=== PATIENT | female | born 1945 | race Caucasian/White ===

== ENCOUNTER 2017-03-15 22:40 | Emergency (ER) | payer OTHER ==
[2017-03-15 23:00] VITALS: BP 147/79
--- NOTE | 2017-03-16 00:03 | EDM.PDOC ---
ED HPI GENERAL MEDICAL PROBLEM - General Chief Complaint: Upper Extremity Injury/Pain Stated Complaint: ARM HURTS Time Seen by Provider: 03/15/17 23:15 Source of Information: Reports: Patient History Limitations: Reports: No Limitations - History of Present Illness INITIAL COMMENTS - FREE TEXT/NARRATIVE: 71-year-old female with fairly intense localized pain over the lateral left elbow which is worsening over the past 24-48 hours. No specific trauma but she is bumping into things "all the time at work". There is some slight erythema over the lateral epicondyle with focal tenderness, very painful to flex the elbow into a 90 position. No warmth or fever. No olecranon bursa inflammation or fluctuance. Onset: Gradual (over the past 48 hours) Location: Reports: Upper Extremity, Left Quality: Reports: Sharp, Stabbing Severity: Moderate Improves with: Reports: Other (Holding the arm extended and still) Worsens with: Reports: Other (Flexion of the arm and touching or palpating the sore area) Associated Symptoms: Reports: No Other Symptoms Left Elbow Pain Score (Numeric/FACES): 8 - Related Data Allergies Allergy/AdvReac Type Severity Reaction Status Date / Time methylprednisolone Allergy Unknown Cannot Verified 12/22/16 08:30 Remember Penicillins Allergy Unknown Cannot Verified 12/22/16 08:30 Remember Skmmckg-Ogi-Djq Reductase Allergy Unknown Cannot Verified 12/22/16 08:30 Inhibitor Remember Sulfa (Sulfonamide Allergy Unknown Cannot Verified 12/22/16 08:30 Antibiotics) Remember bacitracin Allergy Itching Verified 12/22/16 08:30 Iodinated Contrast- Oral and Allergy Hives Verified 12/22/16 08:30 IV Dye NSAIDS (Non-Steroidal Allergy Nausea Verified 12/22/16 08:31 Anti-Inflamma Home Meds: Home Meds Aspirin [Aspirin EC] 325 mg PO DAILY 04/07/13 [History] Furosemide [Lasix] 40 mg PO DAILY 04/07/13 [History] Potassium Chloride [Klor-Con 10] 20 meq PO DAILY 04/07/13 [History] atorvaSTATin [Lipitor] 10 mg PO BEDTIME 04/07/13 [History] Nitroglycerin 0.4 mg SL Q5M PRN #25 tab.subl 04/21/13 [Rx] Loratadine [Claritin RediTabs] 10 mg PO DAILY 04/25/13 [History] Hydrocodone/Acetaminophen [Gorham 10-325 Tablet] 1 each PO Q8H PRN 03/09/15 [ History] Isosorbide Mononitrate [Imdur] 30 mg PO DAILY 03/09/15 [History] Ranitidine [Zantac] 150 mg PO DAILY PRN 03/09/15 [History] Triamcinolone Acetonide [Kenalog 0.1% Crm] 1 applic TOP TID 03/09/15 [History] Past Medical History HEENT History: Reports: Sinusitis Cardiovascular History: Reports: High Cholesterol, Hypertension Respiratory History: Reports: Asthma, Bronchitis, Recurrent Gastrointestinal History: Reports: Gastritis, GERD Genitourinary History: Reports: Urinary Incontinence 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 Social & Family History - Tobacco Use Smoking Status *Q: Former Smoker Years of Tobacco use: 50 Used Tobacco, but Quit: Yes Month Tobacco Last Used: years ago Second Hand Smoke Exposure: No - Caffeine Use Caffeine Use: Reports: Coffee, Soda, Tea - Alcohol Use Days Per Week of Alcohol Use: 0 - Recreational Drug Use Recreational Drug Use: No Review of Systems - Review of Systems Review Of Systems: See Below Constitutional: Denies: Fever, Weakness Respiratory: Denies: Shortness of Breath Cardiovascular: Denies: Chest Pain Skin: Reports: Erythema (A small amount of erythema over the lateral left elbow , no bruising) Neurological: Reports: Paresthesia (No distal paresthesias or numbness) ED EXAM, GENERAL - Physical Exam Exam: See Below Exam Limited By: No Limitations General Appearance: Alert, No Apparent Distress Respiratory/Chest: No Respiratory Distress Extremities: Other (Exam is otherwise limited to the left arm. She has some slight erythema over the lateral epicondyle of the left elbow, and and it is very tender to palpation with marked increase in pain with flexion of the elbow. There is no appreciable effusion, the olecranon bursa is nontender without fluctuance or swelling. She has marked increased pain with extension of the wrist against resistance) Course - Vital Signs Last Recorded V/S: Last Vital Signs Temp 96.3 F 03/15/17 22:58 Pulse 80 03/15/17 22:58 Resp 20 03/15/17 22:58 BP 147/79 H 03/15/17 22:58 Pulse Ox 97 03/15/17 22:58 - Orders/Labs/Meds Orders: Active Orders 24 hr Category Date Time Status Elbow Min 3V Lt [CR] Stat Exams 03/15/17 23:31 Taken - Re-Assessments/Exams Free Text/Narrative Re-Assessment/Exam: 03/16/17 00:00 A 3 view x-ray of the elbow was obtained which looks normal. There is no evidence of calcific tendinitis, elbow effusion or arthritis. I think for some reason this patient has developed a fairly acute and very symptomatic lateral epicondylitis. I put a four-inch Balbir wrap around her arm, gave her 6 hydrocodone to use sparingly and would like her to recheck with orthopedics tomorrow. Departure - Departure Time of Disposition: 00:21 Disposition: Home, Self-Care 01 Condition: Good Clinical Impression: Epicondylitis, lateral Qualifiers: Laterality: left Qualified Code(s): M77.12 - Lateral epicondylitis, left elbow - Discharge Information Instructions: Tennis Elbow, [id number] Referrals: Anthony Figueroa MD [Primary Care Provider] - Forms: ED Department Discharge Care Plan Goals: Wear Balbir wrap for support, ice may help and use pain medications as directed. Get a second opinion from Dr. Walker Ramirez or Jumana Balderas tomorrow at the orthopedic clinic. - My Orders Last 24 Hours: My Active Orders 03/15/17 23:31 Elbow Min 3V Lt [CR] Stat - Assessment/Plan Last 24 Hours: My Active Orders 03/15/17 23:31 Elbow Min 3V Lt [CR] Stat
--- NOTE | 2017-03-16 08:41 | CR ---
Elbow Min 3V Lt INDICATION: non traumatic pain FINDINGS: Well-corticated calcific densities in the anterior joint appear chronic. Small enthesophyte involving the olecranon. No evidence for acute fracture.
== END 2017-03-16 00:10 | disposition home or self-care (01) ==
LOC: JP.ED 22:40
DX: M77.12 Lateral epicondylitis, left elbow (principal); I10 Essential (primary) hypertension; E78.00 Pure hypercholesterolemia, unspecified; Z79.01 Long term (current) use of anticoagulants; Z79.82 Long term (current) use of aspirin; Z79.899 Other long term (current) drug therapy; Z87.891 Personal history of nicotine dependence; Z88.0 Allergy status to penicillin; Z88.2 Allergy status to sulfonamides; Z88.8 Allergy status to other drugs, medicaments and biological substances
CPT/HCPCS: 73080-26-LT; 73080-LT; 99284

== ENCOUNTER 2017-09-30 22:32 | Emergency (ER) | payer OTHER ==
[2017-09-30] MEDS ORDERED: Sodium Chloride 0.9% 10 ML Syringe FLUSH PRN (23:28)
--- NOTE | 2017-09-30 23:32 | EDM.PDOC ---
ED HPI GENERAL MEDICAL PROBLEM - General Chief Complaint: Chest Pain Stated Complaint: CHEST PAIN Time Seen by Provider: 09/30/17 23:04 Source of Information: Reports: Patient, Old Records, RN Notes Reviewed History Limitations: Reports: Other (History is complicated and there is some vagueness from the patient) - History of Present Illness INITIAL COMMENTS - FREE TEXT/NARRATIVE: Here with her son and her sister Chief complaint Chest discomfort History of present illness 71-year-old female who lives on her own, with history of prior cardiac interventions, was well this morning but sometime around 6 PM this evening she started feeling tired nauseated and generally unwell. She felt some chest discomfort under the left breast but no sharp pains. She did feel some fluttering in her chest, but no diaphoresis. She did feel sensitive to touch her chest on the left side. She also felt it was hard to breathe. Similar chest discomfort in the past, she took a nitroglycerin, no change in her chest discomfort but she felt worse as she developed a headache. The chest discomfort has reduced a little but is still present. Previously she was told that she had a heart attack. She reports that she's never had significant chest pain and was unaware of the heart attack until it was showing up on EKG. She was referred for further evaluation found to have blocked arteries on an angiogram, underwent stent procedures and then later coronary artery bypass graft. However she states that with any year there was a blockage discovered. About a month ago she had some significant dizziness and lightheadedness, was taken by ambulance from [facility]. She was found to be bradycardic during her investigations underwent pacemaker placement. Apparently stent was placed or attempted, she was told that she has a blockage that she needs to be referred to to especially centrally because it was too complicated to treat locally. She is waiting to get a call back from [facility] in [place]. Her pacemaker was inserted August 20, she felt a little better after the pacemaker was inserted. At that time she also had valve replacement with a bovine tissue valve. She never has had shortness of breath or chest pain with exertion, as far she can recall she hasn't really improved since her bypass was done. Her sister reports that the patient just does not seem to have any energy. chest Pain Score (Numeric/FACES): 4 - Related Data Allergies Allergy/AdvReac Type Severity Reaction Status Date / Time methylprednisolone Allergy Unknown Cannot Verified 09/30/17 22:43 Remember Penicillins Allergy Unknown Cannot Verified 09/30/17 22:43 Remember Ikzlpso-Jio-Pxs Reductase Allergy Unknown Cannot Verified 09/30/17 22:43 Inhibitor Remember Sulfa (Sulfonamide Allergy Unknown Cannot Verified 09/30/17 22:43 Antibiotics) Remember bacitracin Allergy Itching Verified 09/30/17 22:43 Iodinated Contrast- Oral and Allergy Hives Verified 09/30/17 22:43 IV Dye metoprolol Allergy Hypotension Verified 09/30/17 22:44 NSAIDS (Non-Steroidal Allergy Nausea Verified 09/30/17 22:43 Anti-Inflamma Home Meds: Home Meds Aspirin [Aspirin EC] 325 mg PO DAILY 04/07/13 [History] Furosemide [Lasix] 40 mg PO DAILY 04/07/13 [History] atorvaSTATin [Lipitor] 10 mg PO BEDTIME 04/07/13 [History] Nitroglycerin 0.4 mg SL Q5M PRN #25 tab.subl 04/21/13 [Rx] Isosorbide Mononitrate [Imdur] 30 mg PO DAILY 03/09/15 [History] Triamcinolone Acetonide [Kenalog 0.1% Crm] 1 applic TOP TID 03/09/15 [History] Sulfamethoxazole/Trimethoprim [Bactrim 400-80 MG] 1 each PO BID 7 Days #14 tablet 03/16/17 [Rx] Clopidogrel [Plavix] 75 mg PO DAILY 09/30/17 [History] Lisinopril [Prinivil] 5 mg PO DAILY 09/30/17 [History] Past Medical History HEENT History: Reports: Sinusitis Cardiovascular History: Reports: Angina, Bypass, CAD, Heart Failure, Heart Murmur, High Cholesterol, Hypertension, SC, Pacemaker, Stents Respiratory History: Reports: Asthma, Bronchitis, Recurrent, Intubation, Previous, Sleep Apnea, SOB Gastrointestinal History: Reports: Gastritis, GERD Genitourinary History: Reports: Urinary Incontinence 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 left elbow pain Neurological History: Reports: CVA Hematologic History: Reports: Anticoagulation Therapy - Infectious Disease History Infectious Disease History: Reports: Chicken Pox, Measles, Mumps - Past Surgical History Cardiovascular Surgical History: Reports: Coronary Artery Bypass, Coronary Artery Stent, Valve Replacement GI Surgical History: Reports: Cholecystectomy, Colonoscopy, EGD Other Endocrine Surgeries/Procedures: Thyroid nodules. Social & Family History - Tobacco Use Smoking Status *Q: Former Smoker Used Tobacco, but Quit: No - Caffeine Use Caffeine Use: Reports: Coffee - Recreational Drug Use Recreational Drug Use: No ED ROS GENERAL - Review of Systems Review Of Systems: See Below Constitutional: Reports: Fever, Malaise. Denies: Chills, Diaphoresis, Decreased Appetite HEENT: Reports: No Symptoms Respiratory: Reports: Shortness of Breath. Denies: Wheezing, Pleuritic Chest Pain, Cough Cardiovascular: Reports: Chest Pain (Chest discomfort not a pain), Edema ( Occasional, mild currently), Lightheadedness, Palpitations. Denies: Dyspnea on Exertion, Syncope Endocrine: Reports: Fatigue. Denies: High Glucose GI/Abdominal: Reports: Nausea. Denies: Abdominal Pain, Decreased Appetite, Distension, Vomiting : Reports: No Symptoms Musculoskeletal: Reports: No Symptoms Skin: Reports: No Symptoms Neurological: Reports: Headache. Denies: Confusion, Paresthesia, Trouble Speaking, Difficulty Walking Hematologic/Lymphatic: Reports: No Symptoms Immunologic: Reports: No Symptoms ED EXAM, GENERAL - Physical Exam Exam: See Below Exam Limited By: No Limitations General Appearance: Alert, Mild Distress, Other (Appears very tired, it seems to take her much effort to answer questions) Eye Exam: Bilateral Eye: EOMI, Normal Inspection Ears: Normal External Exam, Hearing Grossly Normal Nose: Normal Inspection Throat/Mouth: Normal Inspection, Normal Oropharynx, Normal Voice Head: Atraumatic, Normocephalic Neck: Normal Inspection, Non-Tender. No: Lymphadenopathy (R), Lymphadenopathy ( L) Respiratory/Chest: No Respiratory Distress, Lungs Clear, Normal Breath Sounds, No Accessory Muscle Use, Other (Mild chest discomfort left side to palpation) Cardiovascular: Normal Peripheral Pulses, Regular Rate, Rhythm, Other (Very mild edema of the ankles) GI/Abdominal: Normal Bowel Sounds, Soft, Non-Tender Back Exam: Normal Inspection. No: CVA Tenderness (R), CVA Tenderness (L), Vertebral Tenderness Extremities: Non-Tender, Pedal Edema Neurological: Alert, Normal Gait, No Motor/Sensory Deficits, Slow to Respond Psychiatric: Flat Affect Skin Exam: Warm, Dry, Intact, Normal Color, No Rash Lymphatic: No Adenopathy Course - Vital Signs Last Recorded V/S: Last Vital Signs Temp 35.9 C 09/30/17 22:41 Pulse 83 10/01/17 00:22 Resp 16 10/01/17 00:22 BP 151/84 H 10/01/17 00:22 Pulse Ox 95 10/01/17 00:22 - Orders/Labs/Meds Orders: Active Orders 24 hr Category Date Time Status EKG Documentation Completion [RC] ASDIRECTED Care 09/30/17 23:30 Active Peripheral IV Care [RC] . DIRECTED Care 09/30/17 23:30 Active Chest 1V Frontal [CR] Stat Exams 09/30/17 23:28 Taken Peripheral IV Insertion Adult [OM.PC] Routine Oth 09/30/17 23:28 Ordered EKG 12 Lead [EK] Routine Ther 09/30/17 23:28 Ordered Labs: Laboratory Tests 09/30/17 09/30/17 09/30/17 Range/Units 22:35 22:35 22:35 WBC 6.5 (4.5-11.0) K/uL RBC 4.29 (3.30-5.50) M/uL Hgb 13.0 (12.0-15.0) g/dL Hct 37.8 (36.0-48.0) % MCV 88 (80-98) fL MCH 30 (27-31) pg MCHC 34 (32-36) % Plt Count 138 L (150-400) K/uL D-Dimer, Quantitative 708 H (0.0-400.0) ng/mL Sodium 140 (140-148) mmol/L Potassium 3.9 (3.6-5.2) mmol/L Chloride 104 (100-108) mmol/L Carbon Dioxide 27 (21-32) mmol/L Anion Gap 8.7 (5.0-14.0) mmol/L BUN 15 (7-18) mg/dL Creatinine 1.0 (0.6-1.0) mg/dL Est Cr Clr Drug Dosing 53.56 mL/min Estimated GFR (MDRD) 55 L (>60) Glucose 103 (74-106) mg/dL Calcium 8.9 (8.5-10.1) mg/dL Magnesium 1.9 (1.8-2.4) mg/dL Total Bilirubin 0.4 (0.2-1.0) mg/dL AST 22 (15-37) U/L ALT 40 (12-78) U/L Alkaline Phosphatase 81 (46-116) U/L Troponin I 0.020 (0.000-0.056) ng/mL NT-Pro-B Natriuret Pep 765 H (5-125) pg/mL Total Protein 6.6 (6.4-8.2) g/dL Albumin 3.6 (3.4-5.0) g/dL Globulin 3.0 (2.3-3.5) g/dL Albumin/Globulin Ratio 1.2 (1.2-2.2) Meds: Medications Discontinued Medications Generic Name Dose Route Start Last Admin Trade Name Freq PRN Reason Stop Dose Admin Sodium Chloride 10 ml 09/30/17 23:28 09/30/17 23:32 Saline Flush FLUSH 10 ml ASDIRECTED PRN Administration Keep Vein Open - Re-Assessments/Exams Free Text/Narrative Re-Assessment/Exam: 09/30/17 23:30 71-year-old female who presents with left-sided chest discomfort that feels like a muscle to her, similar to previous episodes. Also fatigue naus and "doesn't feel well" Has not had conventi symptoms, does not get pressure or difficulty breathing or short of breath, but has been diagnosed with coronary artery disease, was told she had a heart attack has had coronary artery bypass graft and stenting. Appears tired, differential diagnosis includes nonspecific fatigue, coronary disease, other systemic illness. Saline lockEKG shows paced rhythm with some fusion complexes or PVCs, no acute ischemic changes but difficult to interpret 10/01/17 00:47 After 4-1/2 hours, troponin is normal BMP mildly elevated as is d-dimer but patient declined CT pulmonary angiogram is she needs preparation for dye allergy and she's not interested in doing that. Chest x-ray is normal There is no evidence of hypoxia She is drifting off to sleep. Likely her fatigue is multifactorial No evidence of acute heart or lung disease tonight Return to emergency if gasping for breath, fever, bad chest pain Otherwise follow-up with primary care and with David Cohen as arranged Departure - Departure Time of Disposition: 00:48 Disposition: Home, Self-Care 01 Condition: Undetermined Clinical Impression: Chest discomfort Fatigue Qualifiers: Fatigue type: unspecified Qualified Code(s): R53.83 - Other fatigue - Discharge Information Instructions: Nonspecific Chest Pain Referrals: Anthony Figueroa MD [Primary Care Provider] - Forms: ED Department Discharge Additional Instructions: Although you do have narrowed or blocked coronary arteries and have had stents and bypass in the past, there is no evidence of acute heart or lung disease tonight. Your ongoing fatigue can be due to many causes. Make an appointment with your physician in the next we to get rechecked If you develop bad shortness of breath wheezing, high fever, chest tightness that keep you awake or keep you from being able to do any activity, then get rechecked. - My Orders Last 24 Hours: My Active Orders 09/30/17 23:28 Chest 1V Frontal [CR] Stat Peripheral IV Insertion Adult [OM.PC] Routine EKG 12 Lead [EK] Routine 09/30/17 23:30 EKG Documentation Completion [RC] ASDIRECTED Peripheral IV Care [RC] . DIRECTED - Assessment/Plan Last 24 Hours: My Active Orders 09/30/17 23:28 Chest 1V Frontal [CR] Stat Peripheral IV Insertion Adult [OM.PC] Routine EKG 12 Lead [EK] Routine 09/30/17 23:30 EKG Documentation Completion [RC] ASDIRECTED Peripheral IV Care [RC] . DIRECTED
[2017-10-01 00:22] VITALS: BP 151/84
--- NOTE | 2017-10-01 09:11 | CR ---
Mild cardio mentally. Sternotomy. Pacemaker. Pulmonary vasculature within normal limits. No focal con solidation.
== END 2017-10-01 01:15 | disposition home or self-care (01) ==
LOC: JP.ED 22:32
DX: R07.89 Other chest pain (principal); R53.83 Other fatigue; I11.0 Hypertensive heart disease with heart failure; I50.9 Heart failure, unspecified; J45.909 Unspecified asthma, uncomplicated; M19.90 Unspecified osteoarthritis, unspecified site; Z87.891 Personal history of nicotine dependence; Z79.01 Long term (current) use of anticoagulants; Z79.899 Other long term (current) drug therapy; Z79.82 Long term (current) use of aspirin; Z88.1 Allergy status to other antibiotic agents; Z88.0 Allergy status to penicillin; Z88.2 Allergy status to sulfonamides; Z88.8 Allergy status to other drugs, medicaments and biological substances
CPT/HCPCS: 36415; 71045; 80053; 83735; 83880; 84484; 85027; 85379; 93005; 99285; J7050

== ENCOUNTER 2018-12-06 07:20 | Day surgery (SDC) | payer BC ==
[2018-12-06] MEDS ORDERED: Dextrose 5%-Lactated Ringers 1,000 ML IV SCH (08:00)
[2018-12-06] MEDS ORDERED: fentaNYL 100 MCG/2 ML SDV ONE (09:39)
[2018-12-06] MEDS ORDERED: Midazolam 1 MG/ML 2 ML SDV ONE (09:39)
[2018-12-06] MEDS ORDERED: Propofol 200 MG/20 ML SDV ONE (09:39)
[2018-12-06 11:16] VITALS: BP 134/76; PULSE 63
--- NOTE | 2018-12-13 14:40 | OR ---
DATE OF PROCEDURE: 12/06/2018 PREOPERATIVE DIAGNOSIS: Indications for screening colonoscopy. POSTOPERATIVE DIAGNOSIS: Possible sessile/serrated polyp of splenic flexure. OPERATIVE PROCEDURE: Flexible colonoscopy with: 1. Biopsy, possible sessile or serrated polyp, splenic flexure of colon. 2. Injection of Jenniffer Ink into stomach ulcer adjacent to possible small polyps of splenic flexure. ANESTHESIA: IV sedation. INDICATION FOR PROCEDURE: This is a 72-year-old presenting for a screening colonoscopy. Plan is to proceed with a colonoscopy with biopsies and/or polypectomy as indicated. Potential risks including bleeding and perforation were discussed, and the patient wishes to proceed. DETAILS OF PROCEDURE: The patient was taken to the operating room and placed in a left lateral decubitus position. IV sedation was administered, after which the initial digital rectal exam was performed and was unremarkable. Colonoscope was then passed into the rectum with retroflexion revealing uncomplicated hemorrhoidal columns. The scope was then passed to the level of cecum. The prep was fairly good with a small amount of liquid stool present. To that level, there were no areas of diverticular disease, no areas of colitis. There was a single area of a possible small sessile ulcerated polyp in the splenic flexure of colon. Biopsies of this were obtained. This may end up being premalignant/benign entity. Upon completion of the biopsies, Jenniffer Ink was injected adjacent to the lesion and 3 mL of this ink was injected into submucosa. Scope was withdrawn, the above findings reconfirmed. We will await the biopsy of report. If this is in fact a sessile or serrated polyp, then she would need to undergo a segmental colon resection. If this appeared to be nonpremalignant lesion, then next colonoscopy would be in 10 years. Everett Ramirez MD /[id number]
== END 2018-12-06 11:15 | disposition home or self-care (01) ==
LOC: JP.SDS 07:20
PROVIDERS: ATTEND Surgery
DX: Z12.11 Encounter for screening for malignant neoplasm of colon (principal); D12.3 Benign neoplasm of transverse colon; K64.9 Unspecified hemorrhoids; R01.1 Cardiac murmur, unspecified; Z95.0 Presence of cardiac pacemaker
CPT/HCPCS: 45380; 45381; 88305; J2250; J2704; J3010; J7042

== ENCOUNTER 2020-11-02 20:20 | Emergency (ER) | payer BC ==
[2020-11-02 20:41] VITALS: BP 118/80; PULSE 91
--- NOTE | 2020-11-02 20:54 | EDM.PDOC ---
ED HPI GENERAL MEDICAL PROBLEM - General Chief Complaint: Respiratory Problem Stated Complaint: COUGH Time Seen by Provider: 11/02/20 20:40 Source of Information: Reports: Patient History Limitations: Reports: No Limitations - History of Present Illness INITIAL COMMENTS - FREE TEXT/NARRATIVE: Sasha is a 74-year-old female presenting to the ED for evaluation of constant cough causing shortness of breath. The patient is undergoing a work-up for cardiac disease after having acute coronary syndrome and what sounds like congestive heart failure. She was recently started on doxycycline for her cough by her primary care provider but has not had any improvement. She is not had any fever or chills. The cough is worse at night when she is lying down. She does have significant nasal congestion with rhinorrhea and postnasal drip. She was recently started on spironolactone for heart failure and has diuresed but has had no improvement in her shortness of breath. She no longer smokes but does have a significant smoking history. For the most part the cough is been productive of small amount of sputum. She denies any fever or chills, chest pain, nausea or vomiting, diaphoresis, increased weight gain or ankle or leg swelling. She is awaiting evaluation in [place] for her heart and reports that she has an elevated troponin. She does take loratadine for her seasonal allergies, however, this does not seem to be working any more. She has numerous allergies and intolerances to medications including nasal steroids like Flonase. - Related Data Allergies Allergy/AdvReac Type Severity Reaction Status Date / Time methylprednisolone Allergy Unknown Cannot Verified 11/02/20 20:55 Remember Penicillins Allergy Unknown Rash Verified 11/02/20 20:55 Ixsgtey-Gkt-Dfl Reductase Allergy Unknown Cannot Verified 11/02/20 20:55 Inhibitor Remember Sulfa (Sulfonamide Allergy Unknown Rash Verified 11/02/20 20:55 Antibiotics) albuterol Allergy Other Verified 11/02/20 20:55 azithromycin [From Zithromax] Allergy Nausea and Verified 11/02/20 20:55 Vomiting bacitracin Allergy Itching Verified 11/02/20 20:55 blue dye Allergy Other Verified 11/02/20 20:55 clotrimazole Allergy Bradycardia Verified 11/02/20 20:55 gold sodium thiomalate Allergy Itching Verified 11/02/20 20:55 hydralazine Allergy Rash Verified 11/02/20 20:55 Iodinated Contrast Media Allergy Hives Verified 11/02/20 20:55 metoprolol Allergy Hypotension Verified 11/02/20 20:55 naproxen Allergy Other Verified 11/02/20 20:55 nickel Allergy Rash Verified 11/02/20 20:55 NSAIDS (Non-Steroidal Allergy Nausea Verified 11/02/20 20:55 Anti-Inflamma perfume Allergy Difficulty Verified 11/02/20 20:55 Breathing sodium hypochlorite solution Allergy Rash Verified 11/02/20 20:55 environmental Allergy Other Uncoded 12/06/18 08:01 gold Allergy Itching Uncoded 12/06/18 08:01 Home Meds: Home Meds Furosemide [Lasix] 40 mg PO DAILY 04/07/13 [History] atorvaSTATin [Lipitor] 10 mg PO BEDTIME 04/07/13 [History] Nitroglycerin 0.4 mg SL Q5M PRN #25 tab.subl 04/21/13 [Rx] Isosorbide Mononitrate [Imdur] 30 mg PO DAILY 03/09/15 [History] Clopidogrel [Plavix] 75 mg PO DAILY 09/30/17 [History] lisinopriL [Prinivil] 5 mg PO DAILY 09/30/17 [History] Aspirin [Adult Low Dose Aspirin EC] 81 mg PO DAILY 08/26/18 [History] Levalbuterol Tartrate [Xopenex Hfa] 2 puff INH Q4H PRN 08/26/18 [History] carvediloL [Coreg] 12.5 mg PO BID 08/26/18 [History] metFORMIN [Glucophage] 500 mg PO BID 08/26/18 [History] Loratadine 10 mg PO DAILY PRN 12/02/18 [History] allopurinoL [Zyloprim] 100 mg PO DAILY 12/02/18 [History] Doxycycline [Vibramycin] 100 mg PO BID 11/02/20 [History] Spironolactone [Aldactone] 25 mg PO DAILY 11/02/20 [History] diphenhydrAMINE HCL [Benadryl] 25 mg PO Q6H PRN 11/02/20 [History] Past Medical History HEENT History: Reports: Cataract, Sinusitis Cardiovascular History: Reports: Angina, Bypass, CAD, Heart Failure, Heart Murmur, High Cholesterol, Hypertension, [place], Pacemaker, Stents Respiratory History: Reports: Asthma, Bronchitis, Recurrent, COPD, Intubation, Previous, Pneumonia, Recurrent, Sleep Apnea, SOB Gastrointestinal History: Reports: Gastritis, GERD, Other (See Below) Other Gastrointestinal History: fatty liver Genitourinary History: Reports: Urinary Incontinence 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 left elbow pain Neurological History: Reports: CVA, Other (See Below) Other Neuro History: spinal meningitis at age 4 yo Hematologic History: Reports: Anticoagulation Therapy, Blood Transfusion(s) Dermatologic History: Reports: Psoriasis - Infectious Disease History Infectious Disease History: Reports: Chicken Pox, Meningitis - Past Surgical History HEENT Surgical History: Reports: Tonsillectomy Cardiovascular Surgical History: Reports: Coronary Artery Bypass, Coronary Artery Stent, Pacer, Valve Replacement GI Surgical History: Reports: Cholecystectomy, Colonoscopy, EGD Female Surgical History: Reports: Hysterectomy Other Endocrine Surgeries/Procedures: Thyroid nodules. Social & Family History - Caffeine Use Caffeine Use: Reports: Coffee ED ROS GENERAL - Review of Systems Review Of Systems: See Below Constitutional: Reports: No Symptoms HEENT: Reports: Rhinitis, Sinus Problem (Nasal congestion and maxillary pressure), Throat Pain (From coughing) Respiratory: Reports: Shortness of Breath, Cough Cardiovascular: Reports: No Symptoms Endocrine: Reports: No Symptoms GI/Abdominal: Reports: No Symptoms : Reports: No Symptoms Musculoskeletal: Reports: No Symptoms Skin: Reports: No Symptoms Neurological: Reports: No Symptoms Psychiatric: Reports: No Symptoms Hematologic/Lymphatic: Reports: No Symptoms Immunologic: Reports: Seasonal Allergy ED EXAM, GENERAL - Physical Exam Exam: See Below Exam Limited By: No Limitations General Appearance: Alert, No Apparent Distress, Anxious Eye Exam: Bilateral Eye: EOMI, PERRL Nose: Nasal Swelling, Nasal Drainage, Clear Rhinorrhea, Other (Minimal bilateral maxillary sinus tenderness to percussion) Throat/Mouth: Normal Inspection, Normal Lips, Normal Oropharynx, Normal Voice, No Airway Compromise Head: Atraumatic, Normocephalic Neck: Normal Inspection, Supple, Non-Tender, Full Range of Motion. No: Lymphadenopathy (R), Lymphadenopathy (L) Respiratory/Chest: No Respiratory Distress, Lungs Clear, Normal Breath Sounds Cardiovascular: Normal Peripheral Pulses, Regular Rate, Rhythm, No Murmur Peripheral Pulses: 2+: Radial (L), Radial (R) GI/Abdominal: Normal Bowel Sounds, Soft, Non-Tender Back Exam: Normal Inspection, Full Range of Motion Extremities: Normal Inspection, Normal Range of Motion, No Pedal Edema, Normal Capillary Refill Neurological: Alert, Oriented, Normal Cognition, No Motor/Sensory Deficits Psychiatric: Anxious Skin Exam: Warm, Dry, Intact, Normal Color Lymphatic: No Adenopathy Course - Vital Signs Last Recorded V/S: Last Vital Signs Temp 36.0 C L 11/02/20 21:16 Pulse 91 11/02/20 21:16 Resp 16 11/02/20 21:16 BP 118/80 11/02/20 21:16 Pulse Ox 97 11/02/20 21:16 - Orders/Labs/Meds Orders: Active Orders 24 hr Category Date Time Status Chest 2V [CR] Stat Exams 11/02/20 20:38 Taken Labs: Laboratory Tests 11/02/20 11/02/20 11/02/20 Range/Units 20:38 20:38 20:48 WBC 7.9 (4.5-11.0) K/uL RBC 4.42 (3.30-5.50) M/uL Hgb 13.2 (12.0-15.0) g/dL Hct 39.7 (36.0-48.0) % MCV 90 (80-98) fL MCH 30 (27-31) pg MCHC 33 (32-36) % Plt Count 173 (150-400) K/uL Neut % (Auto) 62.5 (36-66) % Lymph % (Auto) 23.9 L (24-44) % [place] % (Auto) 10.5 H (2-6) % Eos % (Auto) 2.8 (2-4) % Baso % (Auto) 0.3 (0-1) % Sodium 136 L (140-148) mmol/L Potassium 4.4 (3.6-5.2) mmol/L Chloride 98 L (100-108) mmol/L Carbon Dioxide 27 (21-32) mmol/L Anion Gap 15.4 H (5.0-14.0) mmol/L BUN 29 H D (7-18) mg/dL Creatinine 1.1 H (0.6-1.0) mg/dL Est Cr Clr Drug Dosing 48.31 mL/min Estimated GFR (MDRD) 49 L (>60) Glucose 169 H (74-106) mg/dL Calcium 9.0 (8.5-10.1) mg/dL Total Bilirubin 0.4 (0.2-1.0) mg/dL AST 47 H D (15-37) U/L ALT 71 D (12-78) U/L Alkaline Phosphatase 119 H (46-116) U/L Troponin I < 0.017 (0.000-0.056) ng/mL C-Reactive Protein 0.57 H (0.0-0.3) mg/dL NT-Pro-B Natriuret Pep 398 H (5-125) pg/mL Total Protein 7.0 (6.4-8.2) g/dL Albumin 3.5 (3.4-5.0) g/dL Globulin 3.5 (2.3-3.5) g/dL Albumin/Globulin Ratio 1.0 L (1.2-2.2) - Re-Assessments/Exams Free Text/Narrative Re-Assessment/Exam: 11/02/20 22:08 I reviewed the patient's labs showing a leukocyte count of 7.9, hemoglobin of 13.2, hematocrit of 39.7, and platelet count of 173,000. The comprehensive metabolic panel significant for sodium 136, potassium 4.4, chloride of 98, bicarbonate of 27, BUN of 29, creatinine 1.1, and glucose of 169. AST and ALT are both normal at 47 and 71 respectively. Alkaline phosphatase is slightly elevated at 119. Troponin is normal at less than 0.017. CRP is slightly elevated at 0.57 and BNP is elevated at 398. Chest x-ray was reviewed and shows a pacemaker and mild cardiomegaly without evidence for pulmonary edema or pulmonary infiltrates. I believe the majority of the patient's symptoms are coming from seasonal allergic rhinitis. She is taking loratadine, however, it does not appear to be working. She had been on nasal steroids in the past but did not tolerate them. She has numerous allergies to medications and is very hesitant to start anything new. She may elect to try one of the other allergy medicines like cetirizine or Pily. She certainly can continue to take the Benadryl as well. Room filtration may also help with her symptoms. Departure - Departure Time of Disposition: 22:15 Disposition: Home, Self-Care 01 Clinical Impression: Cough productive of clear sputum Allergic rhinitis due to allergen Qualifiers: Allergic rhinitis trigger: pollen Allergic rhinitis seasonality: seasonal Qualified Code(s): J30.1 - Allergic rhinitis due to pollen - Discharge Information Instructions: Allergic Rhinitis, Adult, Kjmw-gm-Eepe, Cough, Adult Referrals: Anthony Figueroa MD [Primary Care Provider] - Forms: ED Department Discharge Care Plan Goals: Without question, your cough is being generated by the significant postnasal drip from your allergic rhinitis. I understand that she did not tolerate nasal steroids before, however, it does not appear the loratadine that you are taking is adequate see you may elect to try an alternative like Pily or cetirizine which goes by the tradename of YupiCall. Both these are available [id number]. You may get the D version which has pseudoephedrine added to it to help dry up the mucous membranes. In the home you may try filtration system like a HEPA filter which may reduce the pollens in the house. Air conditioning can also help as well. A nighttime humidifier may help with breathing at nighttime when you are reclined. Your x-ray today showed no significant worrisome findings other than mild enlargement of your heart. There was no significant pulmonary edema although you still are in mild heart failure at this time based on your brain natruretic peptide level. Continue with your other medications as before. Sepsis Event Note (ED) - Focused Exam Vital Signs: Vital Signs Temp Pulse Resp BP Pulse Ox 11/02/20 21:16 36.0 C L 91 16 118/80 97 11/02/20 20:40 36.0 C L 91 16 118/80 97 - Problem List & Annotations (1) Allergic rhinitis due to allergen SNOMED Code(s): 28591279 Code(s): J30.9 - ALLERGIC RHINITIS, UNSPECIFIED Status: Acute Priority: Medium Current Visit: Yes Qualifiers: Allergic rhinitis trigger: pollen Allergic rhinitis seasonality: seasonal Qualified Code(s): J30.1 - Allergic rhinitis due to pollen (2) Cough productive of clear sputum SNOMED Code(s): 594407880 Code(s): R05 - COUGH Status: Acute Priority: Medium Current Visit: Yes - Problem List Review Problem List Initiated/Reviewed/Updated: Yes - My Orders Last 24 Hours: My Active Orders 11/02/20 20:38 Chest 2V [CR] Stat - Assessment/Plan Last 24 Hours: My Active Orders 11/02/20 20:38 Chest 2V [CR] Stat
--- NOTE | 2020-11-05 10:08 | CR ---
CHEST: 2 view CLINICAL HISTORY:Dyspnea, cough COMPARISON:CT chest 2020 FINDINGS: There has been previous sternotomy. Patient has a permanent cardiac pacer. The heart size, pulmonary vascularity and hilar structures are normal. No infiltrate effusion or pneumothorax is seen. There are atherosclerotic changes in the aorta. IMPRESSION: No acute cardiopulmonary process.
== END 2020-11-02 22:31 | disposition home or self-care (01) ==
LOC: EEVIPCON 20:20 → JP.ED 20:20
DX: J30.1 Allergic rhinitis due to pollen (principal); J30.2 Other seasonal allergic rhinitis; I25.10 Atherosclerotic heart disease of native coronary artery without angina pectoris; I11.0 Hypertensive heart disease with heart failure; I50.9 Heart failure, unspecified; I25.2 Old myocardial infarction; J44.9 Chronic obstructive pulmonary disease, unspecified; M19.90 Unspecified osteoarthritis, unspecified site; Z86.73 Personal history of transient ischemic attack (TIA), and cerebral infarction without residual deficits; Z79.01 Long term (current) use of anticoagulants; Z88.8 Allergy status to other drugs, medicaments and biological substances; Z88.0 Allergy status to penicillin; Z88.2 Allergy status to sulfonamides; Z88.1 Allergy status to other antibiotic agents; Z88.6 Allergy status to analgesic agent; Z91.048 Other nonmedicinal substance allergy status; Z79.02 Long term (current) use of antithrombotics/antiplatelets; Z79.82 Long term (current) use of aspirin; Z79.84 Long term (current) use of oral hypoglycemic drugs; Z79.899 Other long term (current) drug therapy
CPT/HCPCS: 36415; 71046; 71046-26; 80053; 83880; 84484; 85025; 86140; 99282; 99283-25

== ENCOUNTER 2021-04-15 08:28 | Emergency (ER) | payer BC ==
[2021-04-15 08:43] VITALS: BP 150/89; PULSE 73
[2021-04-15] MEDS ORDERED: Ondansetron 4 MG/2 ML SDV IVPUSH ONE (09:02)
[2021-04-15] MEDS ORDERED: Sodium Chloride 0.9% 1,000 ML IV SCH (09:15)
--- NOTE | 2021-04-15 09:46 | EDM.PDOC ---
ED HPI GENERAL MEDICAL PROBLEM - General Chief Complaint: Gastrointestinal Problem Stated Complaint: COUGH, UPSET STOMACH Time Seen by Provider: 04/15/21 08:45 Source of Information: Reports: Patient History Limitations: Reports: No Limitations - History of Present Illness INITIAL COMMENTS - FREE TEXT/NARRATIVE: 75-year-old female, unvaccinated for Covid was diagnosed just over 10 days ago and received monoclonal antibody for treatment 7 days ago. Since that time she has had persistent nausea, seems to be worsening over the last 2 days and she tried to eat something this morning and had emesis and is just tired of feeling sick. She still has a cough but no significant shortness of breath, no fevers or chills. Intermittent diarrhea. Onset: Gradual Duration: Day(s): (Symptoms for 10 days, nausea and vomiting worse for the last 48 hours) Associated Symptoms: Reports: No Other Symptoms - Related Data Allergies Allergy/AdvReac Type Severity Reaction Status Date / Time methylprednisolone Allergy Unknown Cannot Verified 04/08/21 14:41 Remember Penicillins Allergy Unknown Rash Verified 04/08/21 14:41 Qvjoekq-EKV-ZoI Reductase Allergy Unknown Cannot Verified 04/08/21 14:41 Inhibitor Remember [Ijfdauw-Xnq-Vqf Reductase Inhibitor] Sulfa (Sulfonamide Allergy Unknown Rash Verified 04/08/21 14:41 Antibiotics) albuterol Allergy Other Verified 04/08/21 14:41 azithromycin [From Zithromax] Allergy Nausea and Verified 04/08/21 14:41 Vomiting bacitracin Allergy Itching Verified 04/08/21 14:41 Bleach (Sodium Hypochlorite) Allergy Other Verified 04/08/21 14:41 blue dye Allergy Other Verified 04/08/21 14:41 carboxymethylcellulose sodium Allergy Edema Verified 04/08/21 14:41 [From Refresh Tears] clotrimazole Allergy Bradycardia Verified 04/08/21 14:41 gabapentin Allergy Other Verified 04/08/21 14:41 gold sodium thiomalate Allergy Itching Verified 04/08/21 14:41 hydralazine Allergy Rash Verified 04/08/21 14:41 insect venom Allergy Rash Verified 04/08/21 14:41 Iodinated Contrast Media Allergy Hives Verified 04/08/21 14:41 metoprolol Allergy Hypotension Verified 04/08/21 14:41 naproxen Allergy Other Verified 04/08/21 14:41 nickel Allergy Rash Verified 04/08/21 14:41 NSAIDS (Non-Steroidal Allergy Nausea Verified 04/08/21 14:41 Anti-Inflamma perfume Allergy Difficulty Verified 04/08/21 14:41 Breathing sodium hypochlorite solution Allergy Rash Verified 04/08/21 14:41 urea [From Ureacin-10] Allergy Rash Verified 04/08/21 14:41 artificial sweeteners Allergy Other Uncoded 04/08/21 14:41 odin dish soap Allergy Shortness Uncoded 04/08/21 14:41 of Breath environmental Allergy Other Uncoded 04/08/21 14:41 gold Allergy Itching Uncoded 04/08/21 14:41 metals Allergy Rash Uncoded 04/08/21 14:41 perfumes Allergy Shortness Uncoded 04/08/21 14:41 of Breath Home Meds: Home Meds atorvaSTATin [Lipitor] 10 mg PO BEDTIME 04/07/13 [History] Nitroglycerin 0.4 mg SL Q5M PRN #25 tab.subl 04/21/13 [Rx] Aspirin [Adult Low Dose Aspirin EC] 81 mg PO DAILY 08/26/18 [History] diphenhydrAMINE HCL [Benadryl] 25 mg PO Q6H PRN 11/02/20 [History] Cetirizine [ZyrTEC] 10 mg PO DAILY 04/08/21 [History] Clopidogrel [Plavix] 75 mg PO DAILY 04/08/21 [History] Furosemide [Lasix] 40 mg PO DAILY 04/08/21 [History] Isosorbide Mononitrate [Imdur] 30 mg PO DAILY 04/08/21 [History] allopurinoL [Zyloprim] 200 mg PO DAILY 04/08/21 [History] carvediloL [Carvedilol] 6.25 mg PO BID 04/08/21 [History] metFORMIN [Glucophage] 500 mg PO BID 04/08/21 [History] Past Medical History HEENT History: Reports: Cataract, Sinusitis Cardiovascular History: Reports: Angina, Bypass, CAD, High Cholesterol, Heart Failure, Heart Murmur, Hypertension, [place], Pacemaker, Stents Respiratory History: Reports: Asthma, Bronchitis, Recurrent, COPD, Intubation, Previous, Pneumonia, Recurrent, Sleep Apnea, SOB Gastrointestinal History: Reports: Gastritis, GERD, Other (See Below) Other Gastrointestinal History: fatty liver Genitourinary History: Reports: Urinary Incontinence 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 Social & Family History - Tobacco Use Tobacco Use Status *Q: Never Tobacco User Second Hand Smoke Exposure: No - Caffeine Use Caffeine Use: Reports: Coffee ED ROS GENERAL - Review of Systems Review Of Systems: See Below Constitutional: Denies: Fever, Chills HEENT: Denies: Vision Change Respiratory: Reports: Shortness of Breath, Cough. Denies: Sputum Cardiovascular: Reports: No Symptoms GI/Abdominal: Reports: Nausea, Vomiting. Denies: Abdominal Pain Skin: Reports: No Symptoms Neurological: Denies: Confusion, Dizziness Psychiatric: Reports: No Symptoms ED EXAM, GENERAL - Physical Exam Exam: See Below Exam Limited By: No Limitations General Appearance: Alert, No Apparent Distress Eye Exam: Bilateral Eye: Normal Inspection Head: Atraumatic Neck: Supple, Non-Tender Respiratory/Chest: Lungs Clear Cardiovascular: Regular Rate, Rhythm, Extra Beats (Fairly frequent ectopic beats) Neurological: Alert, Oriented, No Motor/Sensory Deficits Psychiatric: Anxious Skin Exam: Warm, Dry Course - Vital Signs Last Recorded V/S: Last Vital Signs Temp 97.1 F 04/15/21 08:41 Pulse 73 04/15/21 08:41 Resp 20 04/15/21 08:41 BP 150/89 H 04/15/21 08:41 Pulse Ox 96 04/15/21 08:41 - Orders/Labs/Meds Labs: Laboratory Tests 04/15/21 04/15/21 Range/Units 09:13 09:13 WBC 9.0 (4.5-11.0) K/uL RBC 4.98 (3.30-5.50) M/uL Hgb 14.6 (12.0-15.0) g/dL Hct 42.6 (36.0-48.0) % MCV 86 (80-98) fL MCH 29 (27-31) pg MCHC 34 (32-36) % Plt Count 189 (150-400) K/uL Neut % (Auto) 72.1 H (36-66) % Lymph % (Auto) 20.2 L (24-44) % [place] % (Auto) 7.2 H (2-6) % Eos % (Auto) 0.4 L (2-4) % Baso % (Auto) 0.1 (0-1) % Sodium 136 L (140-148) mmol/L Potassium 3.1 L (3.6-5.2) mmol/L Chloride 98 L (100-108) mmol/L Carbon Dioxide 27 (21-32) mmol/L Anion Gap 14.1 H (5.0-14.0) mmol/L BUN 20 H (7-18) mg/dL Creatinine 1.1 H (0.6-1.0) mg/dL Est Cr Clr Drug Dosing 47.60 mL/min Estimated GFR (MDRD) 49 L (>60) Glucose 237 H (74-106) mg/dL Calcium 9.2 (8.5-10.1) mg/dL Lipase 134 (73-393) U/L Meds: Medications Discontinued Medications Generic Name Dose Route Start Last Admin Trade Name Freq PRN Reason Stop Dose Admin Sodium Chloride 1,000 mls @ 500 mls/hr 04/15/21 09:15 04/15/21 09:22 Normal Saline IV 500 mls/hr ASDIRECTED MUNDO Administration Ondansetron HCl 4 mg 04/15/21 09:02 04/15/21 09:21 Ondansetron 4 Mg/2 Ml Sdv IVPUSH 04/15/21 09:03 4 mg ONETIME ONE Administration - Re-Assessments/Exams Free Text/Narrative Re-Assessment/Exam: 04/15/21 09:42 An IV was started, patient will be given 500 cc of bolus normal saline with 4 mg of IV Zofran. CBC BMP and lipase obtained. 04/15/21 09:51 Labs were reassuring other than a potassium of 3.1, she has potassium at home b ut was told "not to take it". I think she should supplement with potassium over the next week to 10 days until she is back to her baseline. She seemed to respond well to the Zofran, she will be discharged with 5 additional doses and encouraged to increase diet and activity as tolerated. Departure - Departure Time of Disposition: 09:55 Disposition: Home, Self-Care 01 Clinical Impression: Hypokalemia, COVID-19 Nausea and vomiting Qualifiers: Vomiting type: unspecified Qualified Code(s): R11.2 - Nausea with vomiting, unspecified - Discharge Information Instructions: Nausea and Vomiting, Adult Referrals: Anthony Figueroa MD [Primary Care Provider] - Forms: ED Department Discharge Care Plan Goals: Take 1 dose of potassium daily for the next 7 to 10 days and use Zofran sparingly over the next few days for nausea or vomiting. Increase diet and activity as tolerated and recheck in 2 to 3 days if not improving satisfactorily. Concentrate on fluids and stay hydrated. Sepsis Event Note (ED) - Evaluation Sepsis Screening Result: No Definite Risk - Focused Exam Vital Signs: Vital Signs Temp Pulse Resp BP Pulse Ox 04/15/21 08:41 97.1 F 73 20 150/89 H 96
== END 2021-04-15 10:14 | disposition home or self-care (01) ==
LOC: JP.ED 08:28
DX: U07.1 COVID-19 (principal); R11.2 Nausea with vomiting, unspecified; E87.6 Hypokalemia; I25.119 Atherosclerotic heart disease of native coronary artery with unspecified angina pectoris; E78.00 Pure hypercholesterolemia, unspecified; I11.0 Hypertensive heart disease with heart failure; I50.9 Heart failure, unspecified; J44.9 Chronic obstructive pulmonary disease, unspecified; K21.9 Gastro-esophageal reflux disease without esophagitis; Z86.73 Personal history of transient ischemic attack (TIA), and cerebral infarction without residual deficits; Z95.0 Presence of cardiac pacemaker; Z88.0 Allergy status to penicillin; Z88.8 Allergy status to other drugs, medicaments and biological substances; Z88.2 Allergy status to sulfonamides; Z91.041 Radiographic dye allergy status; Z91.048 Other nonmedicinal substance allergy status; Z88.1 Allergy status to other antibiotic agents; Z88.5 Allergy status to narcotic agent; Z79.82 Long term (current) use of aspirin; Z79.02 Long term (current) use of antithrombotics/antiplatelets; Z79.899 Other long term (current) drug therapy
CPT/HCPCS: 36415; 80048; 83690; 85025; 96374; 99284; J2405; J7030

== ENCOUNTER 2021-05-13 11:51 | Emergency (ER) | payer BC ==
--- NOTE | 2021-05-13 12:41 | EDM.PDOC ---
ED HPI GENERAL MEDICAL PROBLEM - General Chief Complaint: Syncope Stated Complaint: MEDICAL [facility] Time Seen by Provider: 05/13/21 12:30 Source of Information: Reports: Patient, EMS History Limitations: Reports: No Limitations - History of Present Illness INITIAL COMMENTS - FREE TEXT/NARRATIVE: 75-year-old female was working at the [employer], when she was on break and suddenly felt lightheaded and nauseous, she called the medical team at the [facility] to come and evaluate her. They found her to be pale, somewhat diaphoretic and she felt "warm" so they were taking her to the medical room when she had an emesis. They laid her down and took her vitals and called EMS. By the time EMS arrived she was feeling fine and did not want to go but they insisted. She was completely stable in route, asymptomatic, and still has no symptoms. She was in a month ago after receiving monoclonal antibody treatment for Covid and had a potassium of only 3.1 but has been eating bananas. No diarrhea or abdominal pain. Onset: Sudden (Symptoms started fairly suddenly about an hour and a half ago, lasted 10 to 15 minutes) Associated Symptoms: Reports: Diaphoresis, Malaise, Nausea/Vomiting, Weakness, Other (No fever but did have chills briefly). Denies: Chest Pain, Cough, Shortness of Breath - Related Data Allergies Allergy/AdvReac Type Severity Reaction Status Date / Time methylprednisolone Allergy Unknown Cannot Verified 05/13/21 12:05 Remember Penicillins Allergy Unknown Rash Verified 05/13/21 12:05 Lkvvbhb-NTY-AvL Reductase Allergy Unknown Cannot Verified 05/13/21 12:05 Inhibitor Remember [Wamkzos-Fiq-Blz Reductase Inhibitor] Sulfa (Sulfonamide Allergy Unknown Rash Verified 05/13/21 12:05 Antibiotics) albuterol Allergy Other Verified 05/13/21 12:05 azithromycin [From Zithromax] Allergy Nausea and Verified 05/13/21 12:05 Vomiting bacitracin Allergy Itching Verified 05/13/21 12:05 Bleach (Sodium Hypochlorite) Allergy Other Verified 05/13/21 12:05 blue dye Allergy Other Verified 05/13/21 12:05 carboxymethylcellulose sodium Allergy Edema Verified 05/13/21 12:05 [From Refresh Tears] clotrimazole Allergy Bradycardia Verified 05/13/21 12:05 gabapentin Allergy Other Verified 05/13/21 12:05 gold sodium thiomalate Allergy Itching Verified 05/13/21 12:05 hydralazine Allergy Rash Verified 05/13/21 12:05 insect venom Allergy Rash Verified 05/13/21 12:05 Iodinated Contrast Media Allergy Hives Verified 05/13/21 12:05 metoprolol Allergy Hypotension Verified 05/13/21 12:05 naproxen Allergy Other Verified 05/13/21 12:05 nickel Allergy Rash Verified 05/13/21 12:05 perfume Allergy Difficulty Verified 05/13/21 12:05 Breathing sodium hypochlorite solution Allergy Rash Verified 05/13/21 12:05 urea [From Ureacin-10] Allergy Rash Verified 05/13/21 12:05 NSAIDS (Non-Steroidal AdvReac Nausea Verified 05/13/21 13:43 Anti-Inflamma artificial sweeteners Allergy Other Uncoded 05/13/21 12:05 odin dish soap Allergy Shortness Uncoded 05/13/21 12:05 of Breath environmental Allergy Other Uncoded 05/13/21 12:05 gold Allergy Itching Uncoded 05/13/21 12:05 metals Allergy Rash Uncoded 05/13/21 12:05 perfumes Allergy Shortness Uncoded 05/13/21 12:05 of Breath Home Meds: Home Meds atorvaSTATin [Lipitor] 10 mg PO BEDTIME 04/07/13 [History] Nitroglycerin 0.4 mg SL Q5M PRN #25 tab.subl 04/21/13 [Rx] Aspirin [Adult Low Dose Aspirin EC] 81 mg PO DAILY 08/26/18 [History] diphenhydrAMINE HCL [Benadryl] 25 mg PO Q6H PRN 11/02/20 [History] Cetirizine [ZyrTEC] 10 mg PO DAILY 04/08/21 [History] Clopidogrel [Plavix] 75 mg PO DAILY 04/08/21 [History] Furosemide [Lasix] 40 mg PO DAILY 04/08/21 [History] Isosorbide Mononitrate [Imdur] 30 mg PO DAILY 04/08/21 [History] allopurinoL [Zyloprim] 200 mg PO DAILY 04/08/21 [History] carvediloL [Carvedilol] 6.25 mg PO BID 04/08/21 [History] metFORMIN [Glucophage] 500 mg PO BID 04/08/21 [History] Benzonatate [Tessalon Perles] 100 mg PO TID #30 cap 05/13/21 [Rx] Past Medical History HEENT History: Reports: Cataract, Sinusitis Cardiovascular History: Reports: Angina, Bypass, CAD, High Cholesterol, Heart Fa ilure, Heart Murmur, Hypertension, GA, Pacemaker, Stents Respiratory History: Reports: Asthma, Bronchitis, Recurrent, COPD, Intubation, Previous, Pneumonia, Recurrent, Sleep Apnea, SOB Gastrointestinal History: Reports: Gastritis, GERD, Other (See Below) Other Gastrointestinal History: fatty liver Genitourinary History: Reports: Urinary Incontinence BLOCKMAN History: Reports: Dysfunctional 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 left elbow pain Neurological History: Reports: CVA, Other (See Below) Other Neuro History: spinal meningitis at age 4 yo Endocrine/Metabolic History: Reports: Diabetes, Type II Hematologic History: Reports: Anticoagulation Therapy, Blood Transfusion(s) Dermatologic History: Reports: Psoriasis - Infectious Disease History Infectious Disease History: Reports: Chicken Pox, Measles, Meningitis - Past Surgical History HEENT Surgical History: Reports: Tonsillectomy Cardiovascular Surgical History: Reports: Coronary Artery Bypass, Coronary Artery Stent, Pacer, Valve Replacement GI Surgical History: Reports: Cholecystectomy, Colonoscopy, EGD Female Surgical History: Reports: Hysterectomy Other Endocrine Surgeries/Procedures: Thyroid nodules. Social & Family History - Tobacco Use Tobacco Use Status *Q: Former Tobacco User Years of Tobacco use: 50 Used Tobacco, but Quit: Yes Month/Year Tobacco Last Used: 12 yrs ago - Caffeine Use Caffeine Use: Reports: Coffee, Tea - Recreational Drug Use Recreational Drug Use: No ED ROS GENERAL - Review of Systems Review Of Systems: See Below Constitutional: Reports: Chills, Malaise. Denies: Fever HEENT: Reports: No Symptoms Respiratory: Denies: Shortness of Breath, Cough Cardiovascular: Denies: Chest Pain, Palpitations GI/Abdominal: Reports: Nausea, Vomiting. Denies: Abdominal Pain, Diarrhea : Reports: Incontinence (Chronic incontinence, especially stress incontinence) Skin: Reports: Pallor, Diaphoresis Neurological: Reports: Other (Near syncope, lightheaded and dizzy) Psychiatric: Reports: No Symptoms ED EXAM, GENERAL - Physical Exam Exam: See Below Exam Limited By: No Limitations General Appearance: Alert, No Apparent Distress Eye Exam: Bilateral Eye: Normal Inspection Head: Atraumatic Neck: Supple, Non-Tender Respiratory/Chest: Lungs Clear Cardiovascular: Regular Rate, Rhythm. No: Tachycardia GI/Abdominal: Soft, Non-Tender Extremities: Normal Inspection. No: Pedal Edema Neurological: Alert, Oriented, No Motor/Sensory Deficits Psychiatric: Normal Affect, Normal Mood Skin Exam: Warm, Dry Course - Vital Signs Last Recorded V/S: Last Vital Signs Temp 98.7 F 05/13/21 12:13 Pulse 99 05/13/21 13:47 Resp 16 05/13/21 13:47 BP 111/58 L 05/13/21 13:47 Pulse Ox 97 05/13/21 13:47 - Orders/Labs/Meds Labs: Laboratory Tests 05/13/21 05/13/21 Range/Units 12:52 12:52 WBC 7.8 (3.2-11.0) K/uL RBC 4.14 (3.77-5.24) M/uL Hgb 12.5 (11.2-15.5) Hct 37.3 (34.3-46.0) % MCV 90.1 (81.4-99.0) fL MCH 30.2 L (31.6-35.5) pg MCHC 33.5 (31.6-35.5) g/dL Plt Count 178 (130-375) K/uL Immature Gran % (Auto) 0.4 (0.0-0.7) % Neut % (Auto) 80.4 H (40.0-78.1) % Lymph % (Auto) 9.1 L (11.4-47.7) % [place] % (Auto) 9.2 (3.3-12.6) % Eos % (Auto) 0.5 (0.0-5.4) % Baso % (Auto) 0.4 (0.1-1.3) % Neut # (Auto) 6.27 (1.0-7.6) K/uL Lymph # (Auto) 0.71 L (0.8-3.3) K/uL [place] # (Auto) 0.72 (0.20-0.90) K/uL Eos # (Auto) 0.04 (0.00-0.40) K/uL Baso # (Auto) 0.03 (0.00-0.10) K/uL Immature Gran # (Auto) 0.03 (0.00-0.23) K/uL Sodium 137 L (140-148) mmol/L Potassium 4.1 (3.6-5.2) mmol/L Chloride 99 L (100-108) mmol/L Carbon Dioxide 31 (21-32) mmol/L Anion Gap 11.1 (5.0-14.0) mmol/L BUN 19 H (7-18) mg/dL Creatinine 1.0 (0.6-1.0) mg/dL Est Cr Clr Drug Dosing TNP Estimated GFR (MDRD) 54 L (>60) Glucose 246 H (74-106) mg/dL Calcium 9.4 (8.5-10.1) mg/dL - Re-Assessments/Exams Free Text/Narrative Re-Assessment/Exam: 05/13/21 12:41 Ambulated to the bathroom and back without any difficulty. Remained in a sinus rhythm. We will check a BMP just to see where her potassium level is but no further evaluation is needed at this time. 05/13/21 13:51 Patient remained asymptomatic while in the emergency room, potassium returned 4.1, CBC otherwise normal as well. She did have a few short runs of well- controlled atrial fibrillation while in the emergency room but it was asymptomatic and the rate controlled. She has overdrive pacing to cover this. I am going to discharge her with some Tessalon Perles to try for cough suppression, and give her a couple days off work and she can return if symptoms recur and are persistent. Departure - Departure Time of Disposition: 14:20 Disposition: Home, Self-Care 01 Clinical Impression: Vasovagal near syncope, Bronchitis Nausea and vomiting Qualifiers: Vomiting type: unspecified Qualified Code(s): R11.2 - Nausea with vomiting, unspecified - Discharge Information Prescriptions: Benzonatate [Tessalon Perles] 100 mg PO TID #30 cap Instructions: Near-Syncope, [id number] Referrals: PCP,None [Primary Care Provider] - Forms: ED Department Discharge Care Plan Goals: Continue your current medications, try benzonatate Perles as directed for cough over the next several days. No work until at least Thursday. Return to the emergency room if you develop lightheadedness, chest pain, shortness of breath or other persistent symptoms that are concerning. Sepsis Event Note (ED) - Focused Exam Vital Signs: Vital Signs Temp Pulse Resp BP Pulse Ox 05/13/21 13:47 99 16 111/58 L 97 05/13/21 13:12 93 16 126/66 98 05/13/21 12:25 94 18 123/72 96 05/13/21 12:13 98.7 F 100 18 128/72 97
[2021-05-13 14:11] VITALS: BP 111/58; PULSE 99
== END 2021-05-13 14:22 | disposition home or self-care (01) ==
LOC: JP.ED 11:51
DX: R55 Syncope and collapse (principal); J40 Bronchitis, not specified as acute or chronic; R11.2 Nausea with vomiting, unspecified; I25.709 Atherosclerosis of coronary artery bypass graft(s), unspecified, with unspecified angina pectoris; E78.00 Pure hypercholesterolemia, unspecified; I11.0 Hypertensive heart disease with heart failure; I50.9 Heart failure, unspecified; I25.2 Old myocardial infarction; J44.9 Chronic obstructive pulmonary disease, unspecified; M19.90 Unspecified osteoarthritis, unspecified site; E11.9 Type 2 diabetes mellitus without complications; Z86.73 Personal history of transient ischemic attack (TIA), and cerebral infarction without residual deficits; Z87.891 Personal history of nicotine dependence; Z88.8 Allergy status to other drugs, medicaments and biological substances; Z88.0 Allergy status to penicillin; Z88.2 Allergy status to sulfonamides; Z88.1 Allergy status to other antibiotic agents; Z91.048 Other nonmedicinal substance allergy status; Z88.6 Allergy status to analgesic agent; Z91.038 Other insect allergy status; Z91.041 Radiographic dye allergy status; Z79.82 Long term (current) use of aspirin; Z79.899 Other long term (current) drug therapy; Z79.02 Long term (current) use of antithrombotics/antiplatelets
CPT/HCPCS: 36415; 80048; 85025; 99284

== ENCOUNTER 2021-08-04 06:04 | Emergency (ER) | payer BC ==
[2021-08-04 06:27] VITALS: BP 134/72; PULSE 73
== END 2021-08-04 07:24 | disposition home or self-care (01) ==
LOC: JP.ED 06:04
DX: R42 Dizziness and giddiness (principal); R11.0 Nausea; I25.10 Atherosclerotic heart disease of native coronary artery without angina pectoris; E78.00 Pure hypercholesterolemia, unspecified; I11.0 Hypertensive heart disease with heart failure; I50.9 Heart failure, unspecified; I25.2 Old myocardial infarction; J44.9 Chronic obstructive pulmonary disease, unspecified; E11.9 Type 2 diabetes mellitus without complications; Z90.49 Acquired absence of other specified parts of digestive tract; Z90.710 Acquired absence of both cervix and uterus; Z88.0 Allergy status to penicillin; Z88.8 Allergy status to other drugs, medicaments and biological substances; Z88.2 Allergy status to sulfonamides; Z79.82 Long term (current) use of aspirin; Z79.899 Other long term (current) drug therapy; Z79.84 Long term (current) use of oral hypoglycemic drugs
CPT/HCPCS: 99283

== ENCOUNTER 2021-11-22 05:38 | Day surgery (SDC) | payer BC ==
[2021-11-22] MEDS ORDERED: Dextrose 5%-Lactated Ringers 1,000 ML IV SCH (06:30)
[2021-11-22] MEDS ORDERED: Propofol 200 MG/20 ML SDV ONE (07:11)
[2021-11-22] MEDS ORDERED: fentaNYL 100 MCG/2 ML SDV ONE (07:11)
[2021-11-22] MEDS ORDERED: Meropenem 500 MG in Sodium Chloride 0.9% 50 ML IV ONE (08:00)
[2021-11-22 09:55] VITALS: BP 115/67; PULSE 88
== END 2021-11-22 10:10 | disposition home or self-care (01) ==
LOC: JP.SDS 05:38
PROVIDERS: ATTEND Surgery
DX: Z12.11 Encounter for screening for malignant neoplasm of colon (principal); K22.70 Barrett's esophagus without dysplasia; K57.30 Diverticulosis of large intestine without perforation or abscess without bleeding; K64.9 Unspecified hemorrhoids; K21.9 Gastro-esophageal reflux disease without esophagitis; K44.9 Diaphragmatic hernia without obstruction or gangrene; K29.60 Other gastritis without bleeding; G47.33 Obstructive sleep apnea (adult) (pediatric); J43.9 Emphysema, unspecified; I25.2 Old myocardial infarction; E11.9 Type 2 diabetes mellitus without complications; I50.9 Heart failure, unspecified; Z86.010 Personal history of colon polyps
CPT/HCPCS: 43239; 45378; 87081; 88305; J2185; J2704; J3010; J7121

== ENCOUNTER 2022-12-13 18:01 | Emergency (ER) | payer BC ==
[2022-12-13 18:34] VITALS: BP 121/75; PULSE 98
== END 2022-12-13 19:06 | disposition home or self-care (01) ==
LOC: JP.ED 18:01
DX: H92.21 Otorrhagia, right ear (principal); I11.0 Hypertensive heart disease with heart failure; I50.9 Heart failure, unspecified; I25.10 Atherosclerotic heart disease of native coronary artery without angina pectoris; I25.2 Old myocardial infarction; E11.9 Type 2 diabetes mellitus without complications; Z88.0 Allergy status to penicillin; Z88.1 Allergy status to other antibiotic agents; Z88.8 Allergy status to other drugs, medicaments and biological substances; Z88.2 Allergy status to sulfonamides; Z88.6 Allergy status to analgesic agent; Z91.09 Other allergy status, other than to drugs and biological substances; Z79.899 Other long term (current) drug therapy; Z79.82 Long term (current) use of aspirin; Z79.01 Long term (current) use of anticoagulants; Z79.84 Long term (current) use of oral hypoglycemic drugs
CPT/HCPCS: 69200; 99282; 99283

== ENCOUNTER 2023-09-19 16:06 | Emergency (ER) | payer BC ==
[2023-09-19 16:19] VITALS: BP 111/64; PULSE 77
[2023-09-19 17:25] LABS: BASOPHILS ABSOLUTE AUTO 0.03 K/uL (0.00-0.10); BASOPHILS PERCENT AUTO 0.3 % (0.1-1.3); EOSINOPHILS ABSOLUTE AUTO 0.23 K/uL (0.00-0.40); EOSINOPHILS PERCENT AUTO 2.4 % (0.0-5.4); HEMATOCRIT 33.6 % (34.3-46.0); HEMOGLOBIN 11.5 g/dL (11.2-15.5); IMMATURE GRAN ABSOLUTE AUTO 0.02 K/uL (0.00-0.23); IMMATURE GRAN PERCENT AUTO 0.2 % (0.0-0.7); LYMPHOCYTES ABSOLUTE AUTO 1.75 K/uL (0.8-3.3); LYMPHOCYTES PERCENT AUTO 18.3 % (11.4-47.7); MEAN CORPUSCULAR HEMOGLOBIN 30.7 pg (31.6-35.5); MEAN CORPUSCULAR HGB CONC 34.2 g/dL (31.6-35.5); MEAN CORPUSCULAR VOLUME 89.6 fL (81.4-99.0); MONOCYTES ABSOLUTE AUTO 0.76 K/uL (0.20-0.90); NEUTROPHILS ABSOLUTE AUTO 6.76 K/uL (1.0-7.6); NEUTROPHILS PERCENT AUTO 70.8 % (40.0-78.1); PLATELET COUNT,PLT 143 K/uL (130-375); RED BLOOD CELL COUNT 3.75 M/uL (3.77-5.24); WHITE BLOOD CELL COUNT,WBC 9.6 K/uL (3.2-11.0)
[2023-09-19 17:42] LABS: ANION GAP 11.4 mmol/L (5.0-14.0); C-REACTIVE PROTEIN 2.24 mg/dL (<0.50); CALCIUM 9.5 mg/dL (8.5-10.1); CREATININE 1.1 mg/dL (0.6-1.0); EST CRCL DRUG DOSING (CG) 44.58 mL/min; POTASSIUM,K 4.4 mmol/L (3.6-5.2)
== END 2023-09-19 18:21 | disposition home or self-care (01) ==
LOC: JP.ED 16:06
DX: J18.9 Pneumonia, unspecified organism (principal); I11.0 Hypertensive heart disease with heart failure; I50.9 Heart failure, unspecified; I25.10 Atherosclerotic heart disease of native coronary artery without angina pectoris; Z95.1 Presence of aortocoronary bypass graft; J44.9 Chronic obstructive pulmonary disease, unspecified; E11.9 Type 2 diabetes mellitus without complications; Z88.8 Allergy status to other drugs, medicaments and biological substances; Z88.0 Allergy status to penicillin; Z88.6 Allergy status to analgesic agent; Z88.2 Allergy status to sulfonamides; Z88.1 Allergy status to other antibiotic agents; Z91.030 Bee allergy status; Z91.048 Other nonmedicinal substance allergy status; Z88.5 Allergy status to narcotic agent; Z79.899 Other long term (current) drug therapy; Z79.82 Long term (current) use of aspirin; Z79.84 Long term (current) use of oral hypoglycemic drugs; Z90.49 Acquired absence of other specified parts of digestive tract; Z90.710 Acquired absence of both cervix and uterus; Z87.891 Personal history of nicotine dependence; Z95.0 Presence of cardiac pacemaker; Z95.5 Presence of coronary angioplasty implant and graft
CPT/HCPCS: 36415; 71045; 71045-26; 80048; 85025; 86140; 99285

== ENCOUNTER 2023-12-30 08:31 | Emergency (ER) | payer BC ==
[2023-12-30 09:23] LABS: BASOPHILS ABSOLUTE AUTO 0.03 K/uL (0.00-0.10); BASOPHILS PERCENT AUTO 0.2 % (0.1-1.3); EOSINOPHILS ABSOLUTE AUTO 0.05 K/uL (0.00-0.40); EOSINOPHILS PERCENT AUTO 0.4 % (0.0-5.4); HEMATOCRIT 34.4 % (34.3-46.0); HEMOGLOBIN 11.7 g/dL (11.2-15.5); IMMATURE GRAN ABSOLUTE AUTO 0.04 K/uL (0.00-0.23); IMMATURE GRAN PERCENT AUTO 0.3 % (0.0-0.7); LYMPHOCYTES ABSOLUTE AUTO 1.07 K/uL (0.8-3.3); LYMPHOCYTES PERCENT AUTO 8.3 % (11.4-47.7); MEAN CORPUSCULAR HEMOGLOBIN 30.4 pg (31.6-35.5); MEAN CORPUSCULAR VOLUME 89.4 fL (81.4-99.0); MONOCYTES ABSOLUTE AUTO 0.93 K/uL (0.20-0.90); MONOCYTES PERCENT AUTO 7.2 % (3.3-12.6); NEUTROPHILS ABSOLUTE AUTO 10.84 K/uL (1.0-7.6); NEUTROPHILS PERCENT AUTO 83.6 % (40.0-78.1); PLATELET COUNT,PLT 128 K/uL (130-375); RED BLOOD CELL COUNT 3.85 M/uL (3.77-5.24)
[2023-12-30] MEDS: Furosemide 40 MG/4 ML VIAL IVPUSH ONE (09:27)
[2023-12-30] MEDS: Sodium Chloride 0.9% 10 ML Syringe FLUSH PRN (09:33)
[2023-12-30 09:48] LABS: A/G RATIO 1.2 (1.2-2.2); ALANINE AMINOTRANSFERASE,ALT 61 U/L (12-78); ALBUMIN 3.6 g/dL (3.4-5.0); ALKALINE PHOSPHATASE 100 U/L (46-116); ASPARTATE AMNIOTRANSFERASE,AST 31 U/L (15-37); BILIRUBIN TOTAL 0.5 mg/dL (0.2-1.0); BLOOD UREA NITROGEN,BUN 26 mg/dL (7-18); CALCIUM 8.2 mg/dL (8.5-10.1); CARBON DIOXIDE,CO2 27 mmol/L (21-32); CHLORIDE,CL 101 mmol/L (100-108); CREATININE 1.1 mg/dL (0.6-1.0); EST CRCL DRUG DOSING (CG) 43.89 mL/min; ESTIMATED GFR 52 mL/min (>60); GLUCOSE RANDOM 170 mg/dL (74-106); POTASSIUM,K 4.4 mmol/L (3.6-5.2); PRO B-TYPE NATRIUR PEPT,BNPPRO 4363 pg/mL (5-450); PROTEIN TOTAL,TP 6.7 g/dL (6.4-8.2); SODIUM,NA 137 mmol/L (140-148)
[2023-12-30 09:49] LABS: ANION GAP 13.4 mmol/L (5.0-14.0); TROPONIN I HIGH SENSITIVITY 105.7 pg/mL (<=60.3)
[2023-12-30 11:59] VITALS: BP 113/76; PULSE 77
== END 2023-12-30 12:53 | disposition home or self-care (01) ==
LOC: JP.ED 08:31
DX: I11.0 Hypertensive heart disease with heart failure (principal); I50.9 Heart failure, unspecified; I25.2 Old myocardial infarction; Z95.0 Presence of cardiac pacemaker; I25.10 Atherosclerotic heart disease of native coronary artery without angina pectoris; J44.9 Chronic obstructive pulmonary disease, unspecified; E11.9 Type 2 diabetes mellitus without complications; Z90.710 Acquired absence of both cervix and uterus; Z90.49 Acquired absence of other specified parts of digestive tract; E78.00 Pure hypercholesterolemia, unspecified; Z88.8 Allergy status to other drugs, medicaments and biological substances; Z88.0 Allergy status to penicillin; Z88.2 Allergy status to sulfonamides; Z79.51 Long term (current) use of inhaled steroids; Z79.899 Other long term (current) drug therapy; Z88.1 Allergy status to other antibiotic agents; Z91.041 Radiographic dye allergy status; Z88.5 Allergy status to narcotic agent; Z79.82 Long term (current) use of aspirin; Z79.84 Long term (current) use of oral hypoglycemic drugs; Z87.891 Personal history of nicotine dependence
CPT/HCPCS: 36415; 71045; 80053; 83880; 84484; 85025; 93005; 96374; 99285; J1940; J3490

== ENCOUNTER 2024-07-06 22:46 | Emergency (ER) | payer BC ==
[2024-07-06 23:28] VITALS: BP 140/76; PULSE 70
== END 2024-07-07 00:01 | disposition home or self-care (01) ==
LOC: JP.ED 22:46
DX: J44.1 Chronic obstructive pulmonary disease with (acute) exacerbation (principal); J20.8 Acute bronchitis due to other specified organisms; I11.0 Hypertensive heart disease with heart failure; I50.9 Heart failure, unspecified; I25.10 Atherosclerotic heart disease of native coronary artery without angina pectoris; I25.2 Old myocardial infarction; J44.9 Chronic obstructive pulmonary disease, unspecified; E11.9 Type 2 diabetes mellitus without complications; E66.9 Obesity, unspecified; Z90.49 Acquired absence of other specified parts of digestive tract; Z90.710 Acquired absence of both cervix and uterus; Z79.84 Long term (current) use of oral hypoglycemic drugs; Z79.899 Other long term (current) drug therapy; Z79.2 Long term (current) use of antibiotics; Z79.82 Long term (current) use of aspirin; Z88.8 Allergy status to other drugs, medicaments and biological substances; Z88.2 Allergy status to sulfonamides; Z88.1 Allergy status to other antibiotic agents; Z91.041 Radiographic dye allergy status; Z91.09 Other allergy status, other than to drugs and biological substances; Z91.048 Other nonmedicinal substance allergy status; Z88.5 Allergy status to narcotic agent; Z88.6 Allergy status to analgesic agent; Z88.0 Allergy status to penicillin; Z68.30 Body mass index [BMI] 30.0-30.9, adult
CPT/HCPCS: 99283; 99284